=== PATIENT | female | born 1960 | race Caucasian/White ===

== ENCOUNTER → 2021-01-06 | Outpatient (CLI) | payer OTHER ==
--- NOTE | 2021-01-06 14:47 | RAD ---
XR HAND_LEFT 3 VIEWS Clinical indications: Reason: 3RD and 4TH METACARPAL PAIN W/ SWELLING AND BRUISING / Spl. Instruction s: / History: Findings: No acute fracture or dislocation or osteolytic process is evident. The scaphoid bone is in tact. 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 IMPRESSION: No acute osseous abnormality is evident. Electronically signed by: Rolando Tripathi MD (01/06/2021 2:45 PM) [id number]
== END ==
LOC: RAD 14:20
PROVIDERS: ATTEND Nurse Practitioner
DX: S60.222A Contusion of left hand, initial encounter (principal); M19.042 Primary osteoarthritis, left hand; M18.12 Unilateral primary osteoarthritis of first carpometacarpal joint, left hand; X58.XXXA Exposure to other specified factors, initial encounter; Y93.89 Activity, other specified; Y92.89 Other specified places as the place of occurrence of the external cause; Y99.8 Other external cause status
CPT/HCPCS: 73130